=== PATIENT | male | born 1970 | race Caucasian/White ===

== ENCOUNTER → 2020-08-17 14:20 | Outpatient (CLI) | payer OTHER, SELFPAY ==
--- NOTE | 2020-08-17 14:22 | DI.RAD.S_ITS ---
PROCEDURE: XR FOOT RT MIN 3V INDICATIONS: Foot and ankle pain TECHNIQUE: 3 views of the foot were acquired. COMPARISON: None. FINDINGS: Bones: No fracture. Posterior calcaneal spur. Mild tibiotalar joint degeneration. Mild 1st MTP degenerative joint disease. Soft tissues: No tibiotalar joint effusion. Achilles tendon appears normal. IMPRESSION: Mild degenerative changes as above Dictated by: Jorge Clay M.D. on 08/17/2020 at 15:20 Approved by: Jorge Clay M.D. on 08/17/2020 at 15:21
--- NOTE | 2020-08-17 14:22 | DI.RAD.S_ITS ---
PROCEDURE: XR ANKLE RT MIN 3V INDICATIONS: Foot and ankle pain TECHNIQUE: 3 views of the ankle were acquired. COMPARISON: None. FINDINGS: Bones: No fracture. Scattered degenerative subchondral sclerosis and spurring. Possible 2-3 mm loose body projecting in the medial tibiotalar joint space. Posterior calcaneal spurring. Soft tissues: No tibiotalar joint effusion. Achilles tendon appears normal. IMPRESSION: Mild tibiotalar joint degeneration with small loose body projecting in the medial joint space. Posterior calcaneal spurring. Dictated by: Jorge Clay M.D. on 08/17/2020 at 15:18 Approved by: Jorge Clay M.D. on 08/17/2020 at 15:20
== END ==
PROVIDERS: PCP Family Medicine; Referring Provider Family Medicine; Visit Provider Family Medicine
DX: M19.071 Primary osteoarthritis, right ankle and foot (principal); S93.401S Sprain of unspecified ligament of right ankle, sequela
CPT/HCPCS: 73610; 73630

== ENCOUNTER → 2020-08-31 09:17 | Outpatient (CLI) | payer OTHER, SELFPAY ==
[2020-08-31 10:03] LABS: Hemoglobin A1C% w Est Avg Glu 5.6 % (4.0-6.0)
[2020-08-31 10:10] LABS: Cholesterol 214 mg/dL (140-199); HDL Cholesterol 34 mg/dL (40-60)
[2020-08-31 10:45] LABS: Triglycerides 648 mg/dL (35-150)
== END ==
PROVIDERS: PCP Family Medicine; Referring Provider Family Medicine; Visit Provider Family Medicine
DX: E66.9 Obesity, unspecified (principal); Z00.01 Encounter for general adult medical examination with abnormal findings; Z68.37 Body mass index [BMI] 37.0-37.9, adult
CPT/HCPCS: 36415; 80061; 83036

== ENCOUNTER → 2020-09-15 12:17 | Outpatient (CLI) | payer OTHER, SELFPAY ==
--- NOTE | 2020-09-15 12:19 | DI.MRI.S_ITS ---
PROCEDURE: MR ANKLE RT WO CON INDICATIONS: Sprain of other ligament of right ankle, initial e TECHNIQUE: Noncontrast sagittal T1 spin echo and T2 fast spin echo with fat saturation, axial proton density fast spin echo and T2 fast spin echo with fat saturation, coronal T1 spin echo and T2 fast spin echo with fat saturation through the ankle/hindfoot. COMPARISON: [facility] [place], CR, XR ANKLE 3+ VIEWS RIGHT, 08/31/2020, 8:45. FINDINGS: Image quality: Excellent. Bones and joints: Mild trabecular bone injury is seen at the medial aspect of the talus, which may be related to deltoid ligament traction. No acute fracture is seen. Mild degenerative changes are seen at the dorsal talonavicular joint. Mild subchondral edema is seen in the navicular medial cuneiform articulation. No hindfoot coalitions. No osteochondral injuries of the talar dome. Mild degenerative changes are seen at the anterolateral aspect of the tibial plafond with cartilage irregularity and subchondral edema with a small marginal osteophyte. Small mortise joint effusion. Medial structures: The deep fibers of the deltoid ligament are indistinct with intermediate signal intensity, compatible with a grade 2 sprain. The spring ligament components are intact. The posterior tibialis, flexor digitorum longus, and flexor hallucis longus tendons are intact. The posterior tibial neurovascular bundle appears normal within the tarsal tunnel, without extrinsic mass effect. Lateral structures: There is complete tearing of the anterior talofibular ligament. The calcaneofibular ligament is thickened, compatible with a moderate grade sprain. The posterior talofibular ligament is intact. The anterior and posterior tibiofibular ligaments appear intact. The peroneus longus and brevis tendons demonstrate normal location and morphology. Mild edema is seen within the sinus tarsi, which may put the patient at increased risk for sinus tarsi syndrome. Anterior structures: The tibialis anterior, extensor hallucis longus, and extensor digitorum longus tendons appear intact. The dorsal talonavicular ligament appears intact. Posterior and plantar structures: Achilles tendon is intact. A non edematous posterior calcaneal spur is present. Medial and lateral bands of the plantar fascia are of normal thickness. No abductor digiti quinti muscle atrophy to suggest Knox neuropathy. IMPRESSION: 1. Complete tearing of the tip of the anterior talofibular ligament. Grade 2 sprain of the calcaneofibular ligament. 2. Grade 2 sprain of the deep deltoid ligament fibers. 3. Mild degenerative changes in the anterior tibial plafond and as well as in the talonavicular and navicular cuneiform articulations. 4. Mild edema in the sinus tarsi is nonspecific, but may but the patient increased risk for sinus tarsi syndrome. Dictated by: Simone Valverde M.D. on 09/15/2020 at 13:38 Approved by: Simone Valverde M.D. on 09/15/2020 at 13:57
== END ==
PROVIDERS: PCP Family Medicine; Referring Provider Orthopaedic Surgery Foot and Ankle Surgery; Visit Provider Orthopaedic Surgery Foot and Ankle Surgery
DX: S93.491A Sprain of other ligament of right ankle, initial encounter (principal); S93.411A Sprain of calcaneofibular ligament of right ankle, initial encounter; S93.421A Sprain of deltoid ligament of right ankle, initial encounter; X58.XXXA Exposure to other specified factors, initial encounter
CPT/HCPCS: 73721

== ENCOUNTER → 2022-04-24 15:23 | Outpatient (CLI) | payer OTHER, SELFPAY ==
--- NOTE | 2022-04-24 15:24 | DI.RAD.S_ITS ---
PROCEDURE: XR LUMBAR SPINE 2-3V INDICATIONS: Chronic low back pain TECHNIQUE: 3 views of the lumbar spine were acquired. COMPARISON: None. FINDINGS: Bones: 5 [id number] vertebrae are present. 2 mm retrolisthesis L1-L2, L2-L3 and L3-L4. Endplate osteophytes indicate mild early multilevel disc degeneration. No vertebral body compression fractures. No suspicious bony lesions. Soft tissues: Overlying bowel gas pattern is normal. No suspicious soft tissue calcifications. IMPRESSION: 1. Multilevel grade 1 retrolisthesis. 2. Endplate osteophytes indicating early mild multilevel disc degeneration. Dictated by: Jose Angel Braun [facility] Interpreted: Real Boswell MD on 04/24/2022 at 15:50 Transcribed by: DONNA on 04/24/2022 at 15:51 Approved by: Real Boswell M.D. on 04/24/2022 at 18:30
== END ==
PROVIDERS: PCP Family Medicine; Referring Provider Family Medicine; Visit Provider Family Medicine
DX: M54.50 Low back pain, unspecified (principal); G89.29 Other chronic pain; M43.16 Spondylolisthesis, lumbar region; M25.78 Osteophyte, vertebrae
CPT/HCPCS: 72100

== ENCOUNTER → 2022-06-18 15:17 | Outpatient (CLI) | payer OTHER, SELFPAY ==
[2022-06-18 16:22] LABS: COVID19 -Nasal RAPID Negative (Negative)
== END ==
PROVIDERS: PCP Family Medicine; Visit Provider Surgery
DX: Z20.822 Contact with and (suspected) exposure to COVID-19 (principal); Z01.812 Encounter for preprocedural laboratory examination
CPT/HCPCS: 87635; C9803

== ENCOUNTER 2022-06-19 11:57 | Day surgery (SDC) | payer OTHER, SELFPAY ==
[2022-06-19] VITALS (7 sets, daily range): BP systolic 108–145; BP diastolic 76–97; PULSE 76–99; RESP 10–18; TEMP 36.2–36.6; O2SAT 94–100; BMI 35.4
[2022-06-19] MEDS: LACTATED RINGERS 1,000 ML 200 ML IV (12:15)
--- NOTE | 2022-06-19 13:11 | PM.HP.1 ---
History of Present Illness History of Present Illness Date Patient Seen: 06/19/22 Time Patient Seen: 13:11 Chief complaint: SCREENING COLONOSCOPY Narrative: The patient presents for colorectal screening. They have never had any previous examination for such. No personal or first-degree family history of colon cancer. On further history denies any recent gastrointestinal symptoms. No nausea, vomiting, abdominal pain, loss of appetite, unexplained weight loss, change in bowel habits, diarrhea, constipation, melena, hematochezia, or bright red blood per rectum. Patient History Medical History Acrochordon Back pain Erectile dysfunction GERD (gastroesophageal reflux disease) (~1999) Hearing loss Hyperlipidemia Knee pain Loose body in ankle and foot joint Obesity Skin neoplasm Spondylolisthesis Surgical History Anesthesia H/O lateral meniscus repair of left knee (~04/2019) Family & Social History Family History Mother CVA (cerebral vascular accident) Brother CVA (cerebral vascular accident) Grandfather Diabetes mellitus Grandmother Alzheimer's disease Grandfather Cancer Social History: household members spouse Tobacco & Substance use: Smoking Status Never smoker alcohol intake current alcohol intake frequency holiday/special occasion Substance Use Type does not use Meds Home Medications and Allergies Home Medications Medication Instructions Recorded Confirmed Type sildenafil 100 mg tablet 100 mg PO DAILY PRN sexual 08/17/20 06/19/22 Rx activity #20 tabs omeprazole 20 mg capsule,delayed See Rx Instructions .Route 08/28/21 06/19/22 Rx release .COMPLEX #336 caps atorvastatin 20 mg tablet See Rx Instructions .Route 09/04/21 06/19/22 Rx .COMPLEX #90 tabs Allergies Allergy/AdvReac Type Severity Reaction Status Date / Time No Known Drug Allergies Allergy Verified 06/19/22 12:15 Exam Vital Signs (past 8 hours): - 06/19/22 12:28 Temperature 97.2 F L Pulse Rate 81 Respiratory Rate 18 Blood Pressure 145/97 H Pulse Oximetry 100 Oxygen Delivery Method Room Air Oxygen Delivery Method Room Air Narrative Exam Narrative: General adult male alert oriented no acute distress Assessment & Plan Assessment & Plan narrative: The patient requires colorectal screening and colonoscopy is recommended. Technical details were discussed. Risks, benefits, alternatives explained. Risks including but not limited to myocardial infarction, aspiration, bleeding, pain, missed lesion, incomplete examination, need for further radiographic studies, colonic perforation, and need for major abdominal surgery were discussed. All questions were answered to their satisfaction, and they are in agreement with this plan. Time Spent With Patient Critical Care time: I spent a total of [] minutes of critical care time on this patient's care today; this time is exclusive of procedural time.
--- NOTE | 2022-06-19 13:13 | PM.OP.COLON ---
Operative Date/Time/Diagnoses Date of procedure: 06/19/22 Time of procedure: 13:13 Pre-op diagnosis: Screening Post-op diagnosis: same Procedure & Clinicians Study performed: Colonoscopy Same procedure as scheduled: Yes Indications: Screening Surgeon: Yaya Delgado Procedure Notes Procedure in detail: The history and physical was performed/updated and the patient is ASA class is 2. The procedure was discussed in detail with the patient. Potential risks complications including infection, bleeding, missed diagnosis, perforation, need for surgery, and were explained. Their questions were answered and informed consent was obtained. Patient was brought to the procedure room and placed standard monitoring equipment. The patient's vital signs were monitored continuously throughout the entire procedure. Prior to starting time-out was performed. The patient was placed in the left lateral recumbent position. Procedural sedation was administered by anesthesia. Examination began with a thorough inspection of the perianal area there was no evidence of fissures, fistulae, external hemorrhoids or cutaneous malignancy. The colonoscopy scope was then placed into the anal canal and was advanced to the cecum, which was identified by the ileocecal valve, the appendiceal orifice and the confluence of the taenia. The scope was then slowly withdrawn examining colon thoroughly in all directions, irrigating it of any residual stool. FINDINGS 1. No masses or polyps 2. Normal healthy colon The patient tolerated the procedure well. They will be discharged once criteria are met. The prep was of good/excellent quality. The withdrawl time was 6 minutes. Specimen(s): none sent Complications: none Impression: Normal colonoscopy Post-procedure Recommendations: Colonoscopy in 10 years Disposition: same day surgery
== END 2022-06-19 14:16 | disposition home or self-care (01) ==
PROVIDERS: PCP Family Medicine; Referring Provider Surgery; Visit Provider Surgery
PROC: 0DJD8ZZ Inspection of Lower Intestinal Tract, Via Natural or Artificial Opening Endoscopic (ICD-10-PCS; CPT 45378; principal; 2022-06-19 13:00)
DX: Z12.11 Encounter for screening for malignant neoplasm of colon (principal)
CPT/HCPCS: 45378; J2704; J3010

== ENCOUNTER → 2023-11-12 09:42 | Outpatient (CLI) | payer OTHER, SELFPAY ==
[2023-11-12 10:32] LABS: Add Manual Diff / Slide Review NO; Basophils Absolute Auto 0 /uL (0-100); Basophils Percent Auto 0.4 % (0-2); Eosinophils Absolute Auto 100 /uL (0-450); Eosinophils Percent Auto 1.1 % (2-4); Hematocrit 48.2 % (41-53); Hemoglobin 16.4 g/dL (13.5-17.5); Lymphocytes Absolute Auto 1500 /uL (1100-4500); Lymphocytes Percent Auto 24.4 % (25-40); Mean Corpuscular Hemoglobin 31.5 PG (26-34); Mean Corpuscular Volume 92.7 fL (80-100); Monocytes Absolute Auto 400 /uL (0-900); Monocytes Percent Auto 5.7 % (3-14); Neutrophils Absolute Auto 4300 /uL (1500-7000); Neutrophils Percent Auto 68.4 % (50-75); Platelet Count 195 X10^3/uL (150-400); Red Cell Distribution Width 13.8 % (11.6-14.8); White Blood Cell Count 6.3 X10^3/uL (4.5-11.0)
[2023-11-12 11:09] LABS: Appearance Urine UA CLEAR; Bilirubin Urine UA NEGATIVE (NEGATIVE); Color Urine UA YELLOW; Glucose Urine UA NEGATIVE (Negative); Ketones Urine UA NEGATIVE (NEGATIVE); Leukocyte Esterase Urine UA NEGATIVE (NEGATIVE); Nitrite Urine UA NEGATIVE (Negative); Occult Blood Urine UA NEGATIVE (Negative); Protein Urine UA NEGATIVE (Negative); Specific Gravity Urine UA 1.015 (1.000-1.035); Urobilinogen Urine UA 0.2 E.U./dL (0.2); pH Urine UA 6.5 (4.5-8.0)
[2023-11-12 11:37] LABS: TSH w/ Reflex to FT4 2.23 uIU/mL (0.47-4.68)
[2023-11-12 11:40] LABS: Creatinine Urine Random 245.9 mg/dL
[2023-11-12 11:41] LABS: Bacteria Urine None Seen; Culture Indicated Urine Cult Not Indicated; RBC Urine None Seen (0-5/HPF); Squamous Epithelial Cell Urine None Seen (0-5/HPF); Urine Volume 10mL (spun); WBC Urine None Seen (0-5/HPF)
[2023-11-12 11:45] LABS: Microalbumi Creatinin Ratio Ur 5.6 ug/mg CR (<30); Microalbumin Urine Random 1.4 mg/dL (0-1.6)
[2023-11-12 16:53] LABS: Alanine Aminotransferase 39 IU/L (<50); Albumin 4.3 g/dL (3.5-5.0); Albumin Globulin Ratio 1.6 (1.0-2.8); Alkaline Phosphatase 76 U/L (38-126); Aspartate Aminotransferase 28 IU/L (17-59); BUN Creatinine Ratio 13.9 (6-22); Bilirubin Total 1.2 mg/dL (0.2-1.3); Blood Urea Nitrogen 14 mg/dL (9-20); Calcium 9.3 mg/dL (8.4-10.2); Carbon Dioxide 28 mmol/L (22-32); Chloride 108 mmol/L (98-107); Cholesterol 203 mg/dL (140-199); Estimated Glomerular Filt Rate > 60 mL/min (>60); Globulin 2.7 g/dL (1.7-4.1); Glucose 115 mg/dL (70-100); HDL Cholesterol 35 mg/dL (40-60); Potassium 4.8 mmol/L (3.4-5.1); Sodium 140 mmol/L (137-145)
[2023-11-12 17:02] LABS: HEMOLYSIS < 15 (0-50)
[2023-11-12 18:38] LABS: Triglycerides 616 mg/dL (35-150)
[2023-11-13 09:21] LABS: Apolipoprotein B 95 mg/dL (<90)
[2023-11-14 11:29] LABS: Prostate Specific Antigen Scrn 0.698 ng/mL (0.1-4.0)
== END ==
LOC: LAB 09:42
PROVIDERS: PCP Family Medicine; Referring Provider Family Medicine; Visit Provider Family Medicine
DX: M43.10 Spondylolisthesis, site unspecified (principal); E78.5 Hyperlipidemia, unspecified; N52.9 Male erectile dysfunction, unspecified; R03.0 Elevated blood-pressure reading, without diagnosis of hypertension; K21.9 Gastro-esophageal reflux disease without esophagitis; Z12.5 Encounter for screening for malignant neoplasm of prostate; R39.198 Other difficulties with micturition
CPT/HCPCS: 36415; 80053; 80061; 81001; 82043; 82172; 82570; 84443; 85025; G0103

== ENCOUNTER → 2025-03-09 09:17 | Outpatient (CLI) | payer OTHER, SELFPAY ==
[2025-03-09 09:53] LABS: Add Manual Diff / Slide Review NO; Hematocrit 45.6 % (41-53); Hemoglobin 16.1 g/dL (13.5-17.5); Lymphocytes Absolute Auto 1700 /uL (1100-4500); Mean Corpuscular HGB Conc 35.3 % (30-36); Mean Corpuscular Hemoglobin 31.6 PG (26-34); Mean Corpuscular Volume 89.5 fL (80-100); Platelet Count 178 X10^3/uL (150-400)
[2025-03-09 10:32] LABS: Alanine Aminotransferase 39 IU/L (<50); Albumin 4.5 g/dL (3.5-5.0); Albumin Globulin Ratio 1.7 (1.0-2.8); Alkaline Phosphatase 72 U/L (38-126); Blood Urea Nitrogen 16 mg/dL (9-20); Calcium 9.2 mg/dL (8.4-10.2); Carbon Dioxide 24 mmol/L (22-32); Chloride 106 mmol/L (98-107); Cholesterol 219 mg/dL (140-199); Estimated Glomerular Filt Rate > 60 mL/min (>60); Globulin 2.6 g/dL (1.7-4.1); Glucose 117 mg/dL (70-99); HDL Cholesterol 31 mg/dL (40-60); HEMOLYSIS < 15 (0-50); Potassium 4.7 mmol/L (3.4-5.1); Sodium 138 mmol/L (137-145); Total Protein 7.1 g/dL (6.3-8.2)
[2025-03-09 10:40] LABS: Triglycerides 739 mg/dL (35-150)
[2025-03-09 11:04] LABS: TSH w/ Reflex to FT4 3.11 uIU/mL (0.47-4.68)
[2025-03-09 15:48] LABS: Microalbumi Creatinin Ratio Ur 3.0 ug/mg CR (<30)
== END ==
PROVIDERS: PCP Family Medicine; Referring Provider Family Medicine; Visit Provider Family Medicine
DX: N52.9 Male erectile dysfunction, unspecified (principal); R53.83 Other fatigue; M43.16 Spondylolisthesis, lumbar region; G89.29 Other chronic pain; G47.19 Other hypersomnia; Z12.5 Encounter for screening for malignant neoplasm of prostate; E78.2 Mixed hyperlipidemia; E78.1 Pure hyperglyceridemia; M54.50 Low back pain, unspecified
CPT/HCPCS: 36415; 80053; 80061; 82043; 82172; 82570; 84402; 84403; 84443; 85025; G0103